=== PATIENT | female | born 1980 | race African-American/Black ===

== ENCOUNTER 2017-10-03 12:38 | Emergency (ER) | payer OTHER ==
[~2017-10-03] VITALS: Ht 175.3 cm; Wt 91.8 kg
[~2017-10-03 12:38] MED LIST: HYDR25TA PO
[2017-10-03] MEDS ORDERED: HYDROCODONE/ACETAMINOPHEN 5-325 MG TABLET PO ONE (14:15)
[2017-10-03 14:55] VITALS: BP 138/85
== END 2017-10-03 15:30 | disposition home or self-care (01) ==
LOC: EMS 12:39
DX: S06.0X1A Concussion with loss of consciousness of 30 minutes or less, initial encounter (principal); S13.4XXA Sprain of ligaments of cervical spine, initial encounter; I10 Essential (primary) hypertension; W51.XXXA Accidental striking against or bumped into by another person, initial encounter; Y93.89 Activity, other specified; Y92.89 Other specified places as the place of occurrence of the external cause; Y99.8 Other external cause status
CPT/HCPCS: 70450; 72125; 99284